=== PATIENT | female | born 1990 | race African-American/Black ===

== ENCOUNTER 2016-09-20 00:37 | Emergency (ER) | payer SELFPAY ==
[~2016-09-20] VITALS: Ht 165.1 cm; Wt 51.7 kg
[2016-09-20] MEDS ORDERED: ADDERALL (01:10)
[2016-09-20] MEDS ORDERED: NS IV 500 ML 500 ML IV ONE (01:15)
--- NOTE | 2016-09-20 01:15 | ED GU-Female ---
General Chief Complaint: -Female Stated Complaint: CRAMPING Nursing Triage Note: PT TO ED 8 W/ C/O VAGINAL BLEEDING ET LOWER ABD CRAMPING ONSET "RECENTLY". REPORTS SHE TOOK A [employer] TEST ET IT WAS POSITIVE BUT TO MAKE SURE SHE WENT TO [employer] ET TOOK A "$30" ONE AND IT WAS ALSO POSITIVE. PT STATES SHE HAS NOT SEEN A DR YET BECAUSE SHE STATES SHE "WASN'T SURE SHE WAS GOING TO KEEP IT OR WHAT." PT REPORTS SHE IS GOING THROUGH ONE [place] AN HOUR AT THIS TIME. Nursing Sepsis Screen: No Definite Risk Source: patient Exam Limitations: no limitations History of Present Illness Time seen by provider: 01:09 Initial Comments Patient has ER by private conveyance with chief complaint of progressively worsening bleeding over the last several weeks to the point that she's not using multiple pads per day. She says she had 2 positive urine test in mid-June. LMP was early May. She is a at approximately 19 weeks. She says her third had near uterine rupture and her fourth and negative the same thing so they had to take the child very early history of premature and had spent a lot of time in the NICU. She has had some nausea and breast tenderness with this thus far she has not sought any help from medical staff because she wasn't sure what she wanted to do with this . She has had no care continues to drink alcohol 2-4 drinks per session over the weekend and does not take vitamins. She denies any shortness of breath, chest pain, nausea, abdominal pain, cramping, dysuria. Her psychiatrist in [place] where she is from is writting for her to continue taking Adderall. Allergies and Home Medications Allergies Coded Allergies: No Known Drug Allergies (Unverified , 09/20/16) Home Medications [Adderall] , (Reported) Constitutional: No chills, No diaphoresis, No fever, No malaise Respiratory: No cough, No short of breath Cardiovascular: No chest pain, No palpitations Gastrointestinal: No abdominal pain, No constipation, No diarrhea, No nausea, No vomiting Genitourinary: denies burning, denies discharge, denies dysuria, other ( constant bleeding) : Yes Expected Date of Delivery: Feb 13, 2017 LMP: May 09, 2016 Musculoskeletal: No back pain, No joint pain Skin: No pruritus, No rash Psychiatric/Neurological: Denies Anxiety, Denies Depressed Past Hptqpbv-Hoaryr-Hddsec Hx Patient Social History Alcohol Use: Occasionally Uses Recreational Drug Use: No Smoking Status: Never a Smoker Recent Foreign Travel: No Contact w/Someone Who Travel: No Recent Infectious Disease Expo: No Recent Hopitalizations: No Surgeries Surgeries: Section Physical Exam Vital Signs Vital Sign - Last 12Hours 09/20/16 00:49 Temp 97.8 Pulse 98 Resp 20 B/P (MAP) 111/78 O2 Delivery Room Air Capillary Refill : Less Than 3 Seconds General Appearance: WD/WN, no apparent distress HEENT: PERRL/EOMI, pharynx normal Neck: supple, normal inspection Cardiovascular: normal peripheral pulses, regular rate, rhythm Respiratory: lungs clear, normal breath sounds Gastrointestinal: normal bowel sounds, non tender, soft, no organomegaly, other (812 weeks gravid appearance with a palpable softball size uterus) Genital/Rectal: normal genital exam, normal vaginal exam (multiparous cervical os with normal complement of mucinous bloody discharge but no products of conception her membranes noted. Os is closed.), No tenderness Pelvic: normal external exam, no cerv. motion tender, no masses Extremities: no pedal edema, normal capillary refill Neurologic/Psychiatric: alert, oriented x 3 Skin: normal color, warm/dry Lymphatic: no adenopathy Progress/Results/Core Measures Results/Orders Lab Results Laboratory Tests Test 09/20/16 01:00 09/20/16 01:14 Range/Units Urine Color SARIKA H Urine Clarity SLIGHTLY CLOUDY Urine pH 6.5 5-9 Urine Specific [place] 1.020 1.016-1.022 Urine Protein 2+ H NEGATIVE Urine Glucose (UA) NEGATIVE NEGATIVE Urine Ketones NEGATIVE NEGATIVE Urine Nitrite NEGATIVE NEGATIVE Urine Bilirubin NEGATIVE NEGATIVE Urine Urobilinogen NORMAL NORMAL MG/DL Urine Leukocyte Esterase 1+ H NEGATIVE Urine RBC (Auto) 5+ H NEGATIVE Urine RBC >100 H /HPF Urine WBC 0-2 /HPF Urine Squamous Epithelial Cells 2-5 /HPF Urine Crystals NONE /LPF Urine Bacteria TRACE /HPF Urine Casts NONE /LPF Urine Mucus NEGATIVE /LPF Urine Culture Indicated NO Urine Opiates Screen NEGATIVE NEGATIVE Urine Oxycodone Screen NEGATIVE NEGATIVE Urine Methadone Screen NEGATIVE NEGATIVE Urine Propoxyphene Screen NEGATIVE NEGATIVE Urine Barbiturates Screen NEGATIVE NEGATIVE Ur Tricyclic Antidepressants Screen NEGATIVE NEGATIVE Urine Phencyclidine Screen NEGATIVE NEGATIVE Urine Amphetamines Screen NEGATIVE NEGATIVE Urine Methamphetamines Screen NEGATIVE NEGATIVE Urine Benzodiazepines Screen NEGATIVE NEGATIVE Urine Cocaine Screen NEGATIVE NEGATIVE Urine Cannabinoids Screen POSITIVE H NEGATIVE White Blood Count 6.0 4.3-11.0 10^3/uL Red Blood Count 4.37 4.35-5.85 10^6/uL Hemoglobin 13.1 11.5-16.0 G/DL Hematocrit 38 35-52 % Mean Corpuscular Volume 87 80-99 FL Mean Corpuscular Hemoglobin 30 25-34 PG Mean Corpuscular Hemoglobin Concent 35 32-36 G/DL Red Cell Distribution Width 12.2 10.0-14.5 % Platelet Count 290 130-400 10^3/uL Mean Platelet Volume 9.8 7.4-10.4 FL Neutrophils (%) (Auto) 45 42-75 % Lymphocytes (%) (Auto) 47 H 12-44 % Monocytes (%) (Auto) 7 0-12 % Eosinophils (%) (Auto) 2 0-10 % Basophils (%) (Auto) 0 0-10 % Neutrophils # (Auto) 2.7 1.8-7.8 X 10^3 Lymphocytes # (Auto) 2.8 1.0-4.0 X 10^3 Monocytes # (Auto) 0.4 0.0-1.0 X 10^3 Eosinophils # (Auto) 0.1 0.0-0.3 10^3/uL Basophils # (Auto) 0.0 0.0-0.1 10^3/uL Sodium Level 137 135-145 MMOL/L Potassium Level 3.8 3.6-5.0 MMOL/L Chloride Level 105 98-107 MMOL/L Carbon Dioxide Level 22 21-32 MMOL/L Anion Gap 10 5-14 MMOL/L Blood Urea Nitrogen 10 7-18 MG/DL Creatinine 0.60 0.60-1.30 MG/DL Estimat Glomerular Filtration Rate > 60 BUN/Creatinine Ratio 17 Glucose Level 122 H 70-105 MG/DL Calcium Level 9.0 8.5-10.1 MG/DL Total Bilirubin 0.2 0.1-1.0 MG/DL Aspartate Amino Transf (AST/SGOT) 19 5-34 U/L Alanine Aminotransferase (ALT/SGPT) 13 0-55 U/L Alkaline Phosphatase 77 40-136 U/L Total Protein 7.3 6.4-8.2 GM/DL Albumin 4.0 3.2-4.5 GM/DL Human Chorionic Gonadotropin, Quant < 5 <5 MIU/ML My Orders Orders - GENESIS COLBY Cbc With Automated Diff (09/20/16:15) Comprehensive Metabolic Panel (09/20/16:15) Drug Screen Stat (Urine) (09/20/16:15) Hcg,Quantitative (09/20/16:) Ua Culture If Indicated (09/20/16:) Ns Iv 500 Ml (Sodium Chloride 0.9%) (09/20/16:15) Urine Bedside (09/20/16:15) Us Ob<14 Wks Sngle W/Transvag (09/20/16:15) Vital Signs/I&O Vital Sign - Last 12Hours 09/20/16 00:49 Temp 97.8 Pulse 98 Resp 20 B/P (MAP) 111/78 O2 Delivery Room Air Blood Pressure Mean: 89 Progress Note #1: Time: 01:22 Progress Note Bedside test was negative so we'll go ahead and get the ultrasound followed by a pelvic exam looking for retained POC. Progress Note #2: Time: 03:25 Progress Note No POC seen at the cervical os. The patient is having no beta hCG at this time so it's reasonable to have her just follow up outpatient with her APPLICATION DESIGN ENGINEER. The patient informs me that she is planning to go back to [place] where her primary care physician is located [facility] on Wednesday. I asked her to stop by medical records Wednesday and get a copy of all of her lab, imaging, to go with her. Diagnostic Imaging Diagonstic Imaging: Ultrasound Plain Films/CT/US/NM/MRI: pelvis (greater than 14 weeks) Comments Endometrium measures 7 mm. No gestational sac is identified. In the setting of a positive test, differential includes early IUP, spontaneous , ectopic . Correlate with beta hCG and recommend close follow-up with beta hCG, ultrasound and exam. Right ovary contains a complex cyst with fluid and echogenic components, measuring 5.4 x 3.7 x 4.47 m. Recommend close continued follow-up. Left ovary not seen. Reviewed: Reviewed Night Moe Study, Reviewed by Me Consults Consults : Consulting Physician: KHANNA,LUIS K DO Consults Notes Discussed the case presentation, lab, ultrasound, physical exam findings. Dr. Khanna agrees that the patient would probably be best served to follow up with her primary care physician or APPLICATION DESIGN ENGINEER for further management. Departure Impression Impression: Primary Impression: Vaginal bleeding Disposition: HOME, SELF-CARE Condition: Stable Departure-Patient Inst. Decision time for Depature: 03:26 Referrals: NO,LOCAL PHYSICIAN (PCP) Primary Care Physician Patient Instructions: IRREGULAR VAGINAL BLEEDING Add. Discharge Instructions: Get a copy of her medical records Wednesday morning from the hospital. After he returned home Wednesday he should contact your private physician or APPLICATION DESIGN ENGINEER to be seen for your disorganized uterine bleeding. If he becomes short of breath or start having chest pain or abdominal pain or nausea vomiting or fever then you should return to an ER immediately. Otherwise plan on following up next week or 2 with your APPLICATION DESIGN ENGINEER/primary care physician. All discharge instructions reviewed with patient and/or family. Voiced understanding. GENESIS COLBY Sep 20, 2016 01:15
[2016-09-20 01:24] LABS: BASOPHILS % (AUTO) 0 % (0-10); EOSINOPHILS # (AUTO) 0.1 10^3/uL (0.0-0.3); EOSINOPHILS % (AUTO) 2 % (0-10); LYMPHOCYTES # (AUTO) 2.8 X 10^3 (1.0-4.0); LYMPHOCYTES % (AUTO) 47 % (12-44); MEAN CORPUSCULAR HEMOGLOBIN 30 PG (25-34); MEAN CORPUSCULAR HGB CONC 35 G/DL (32-36); MEAN CORPUSCULAR VOLUME 87 FL (80-99); MEAN PLATELET VOLUME 9.8 FL (7.4-10.4); MONOCYTES # (AUTO) 0.4 X 10^3 (0.0-1.0); MONOCYTES % (AUTO) 7 % (0-12); NEUTROPHILS # (AUTO) 2.7 X 10^3 (1.8-7.8); NEUTROPHILS % (AUTO) 45 % (42-75); PLATELET COUNT 290 10^3/uL (130-400); RED BLOOD COUNT 4.37 10^6/uL (4.35-5.85); RED CELL DISTRIBUTION WIDTH 12.2 % (10.0-14.5)
[2016-09-20 01:25] LABS: BILIRUBIN,URINE NEGATIVE (NEGATIVE); KETONES,URINE NEGATIVE (NEGATIVE); LEUKOCYTE ESTERASE ,URINE 1+ (NEGATIVE); NITRITE,URINE NEGATIVE (NEGATIVE); PH,URINE 6.5 (5-9); PROTEIN,URINE 2+ (NEGATIVE); UROBILINOGEN,URINE NORMAL (NORMAL)
[2016-09-20 01:44] LABS: WBC,URINE 0-2 /HPF
[2016-09-20 01:44] LABS: ALANINE AMINOTRANSFERASE 13 U/L (0-55); ANION GAP 10 MMOL/L (5-14); ASPARTATE AMINO TRANSFERASE 19 U/L (5-34); BILIRUBIN,TOTAL 0.2 MG/DL (0.1-1.0); BLOOD UREA NITROGEN 10 MG/DL (7-18); BUN/CREATININE RATIO 17; CARBON DIOXIDE 22 MMOL/L (21-32); CHLORIDE 105 MMOL/L (98-107); GFR ESTIMATED > 60; GLUCOSE 122 MG/DL (70-105); POTASSIUM 3.8 MMOL/L (3.6-5.0); SODIUM 137 MMOL/L (135-145); TOTAL PROTEIN 7.3 GM/DL (6.4-8.2)
[2016-09-20 03:30] VITALS: BP 122/96
--- NOTE | 2016-09-20 07:28 | Diagnostic Imaging Report ---
EXAMINATION: OB ultrasound INDICATION: Cramping There are no prior studies available for comparison. The uterus is nongravid and not enlarged and retroverted. The endometrium is only slightly thickened measuring 7 MM (normal 5 mm or less). If the patient has a positive test the possibility of an early live , spontaneous or ectopic should certainly be considered. Correlation with the patient's beta hCG levels would be recommended. The right ovary was identified. The right ovary does contain a sizeable hypoechoic mass with internal echoes measuring 5.4 x 3.7 x 4.4 CM. I suspect that this is an ovarian cyst which has been complicated by infection and/or hemorrhage. This does not have the typical appearance of an ectopic . The left ovary was not clearly visualized. There is no solid pelvic mass or free fluid collection noted. IMPRESSION: 1. There is no evidence for gestational sac within the uterus. Recommendations as above. 2. There is a sizable complex hypoechoic mass associated with the right ovary. Most likely, this is a complicated cyst. A short-term (4-6 week) followup pelvic also exam would be recommended for further study. Dictated by: Dictated on workstation # [id number]
== END 2016-09-20 03:30 | disposition home or self-care (01) ==
LOC: ER 00:40
DX: O20.9 Hemorrhage in early pregnancy, unspecified (principal); Z3A.19 19 weeks gestation of pregnancy; Z87.59 Personal history of other complications of pregnancy, childbirth and the puerperium
CPT/HCPCS: 36415; 76801; 76817; 80053; 80306; 81000; 84702; 84703; 85025; 99282

== ENCOUNTER 2017-01-19 23:26 | Emergency (ER) | payer SELFPAY ==
[~2017-01-19] VITALS: Ht 165.1 cm; Wt 45.4 kg
[~2017-01-19 23:26] MED LIST: ADDERALL
[2017-01-19] MEDS ORDERED: LACTATED RINGERS 1,000 ML IV ONE (23:35)
[2017-01-19 23:45] LABS: BASOPHILS % (AUTO) 0 % (0-10); EOSINOPHILS # (AUTO) 0.1 10^3/uL (0.0-0.3); EOSINOPHILS % (AUTO) 1 % (0-10); LYMPHOCYTES # (AUTO) 2.9 X 10^3 (1.0-4.0); LYMPHOCYTES % (AUTO) 45 % (12-44); MEAN CORPUSCULAR HEMOGLOBIN 30 PG (25-34); MEAN CORPUSCULAR HGB CONC 35 G/DL (32-36); MEAN CORPUSCULAR VOLUME 85 FL (80-99); MEAN PLATELET VOLUME 9.4 FL (7.4-10.4); MONOCYTES # (AUTO) 0.4 X 10^3 (0.0-1.0); MONOCYTES % (AUTO) 7 % (0-12); NEUTROPHILS % (AUTO) 47 % (42-75); PLATELET COUNT 347 10^3/uL (130-400); RED BLOOD COUNT 4.82 10^6/uL (4.35-5.85); RED CELL DISTRIBUTION WIDTH 12.1 % (10.0-14.5); WHITE BLOOD COUNT 6.5 10^3/uL (4.3-11.0)
[2017-01-19] MEDS ORDERED: ONDANSETRON 4 MG/2 ML (SDV) Z0FRAN IVP ONE (23:45)
[2017-01-19 23:56] LABS: BILIRUBIN,URINE NEGATIVE (NEGATIVE); KETONES,URINE 2+ (NEGATIVE); LEUKOCYTE ESTERASE ,URINE NEGATIVE (NEGATIVE); NITRITE,URINE NEGATIVE (NEGATIVE); PH,URINE 6.5 (5-9); PROTEIN,URINE NEGATIVE (NEGATIVE); UROBILINOGEN,URINE NORMAL (NORMAL)
[2017-01-20 00:02] LABS: SQUAMOUS EPITHELIAL CELL,UR RARE /HPF
[2017-01-20 00:14] LABS: ALANINE AMINOTRANSFERASE 14 U/L (0-55); ALBUMIN 4.6 GM/DL (3.2-4.5); ALCOHOL 13 MG/DL (<10); ANION GAP 13 MMOL/L (5-14); ASPARTATE AMINO TRANSFERASE 23 U/L (5-34); BILIRUBIN,TOTAL 0.3 MG/DL (0.1-1.0); BLOOD UREA NITROGEN 9 MG/DL (7-18); BUN/CREATININE RATIO 13; CALCIUM 9.8 MG/DL (8.5-10.1); CARBON DIOXIDE 22 MMOL/L (21-32); CHLORIDE 101 MMOL/L (98-107); CREATININE SERUM 0.67 MG/DL (0.60-1.30); GFR ESTIMATED > 60; GLUCOSE 89 MG/DL (70-105); POTASSIUM 3.5 MMOL/L (3.6-5.0); SALICYLATE < 5.0 MG/DL (5.0-20.0); SODIUM 136 MMOL/L (135-145); TOTAL PROTEIN 8.6 GM/DL (6.4-8.2)
[2017-01-20 00:16] LABS: ACETAMINOPHEN < 10 UG/ML (10-30)
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
[2017-01-20 01:02] VITALS: BP 125/81
== END 2017-01-20 01:01 | disposition home or self-care (01) ==
LOC: EDUNIT# 23:31 → ER 23:32
DX: R41.82 Altered mental status, unspecified (principal); Z87.59 Personal history of other complications of pregnancy, childbirth and the puerperium
CPT/HCPCS: 36415; 80053; 80306; 80320; 80329; 81000; 84443; 84703; 85025; 93005

== ENCOUNTER 2017-02-08 23:09 | Emergency (ER) | payer SELFPAY | END 2017-02-08 23:10 | disposition left against medical advice (07) | LOC: EDUNIT# 23:09 → ER 23:10 | DX: R11.10 Vomiting, unspecified (principal) ==

== ENCOUNTER 2017-03-21 05:22 | Emergency (ER) | payer OTHER ==
[~2017-03-21] VITALS: Ht 165.1 cm; Wt 50.8 kg
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
[2017-03-21] MEDS ORDERED: CYCL10TA9 PO (07:07)
[2017-03-21 07:15] VITALS: BP 110/79
--- NOTE | 2017-03-21 07:23 | Diagnostic Imaging Report ---
EXAM: WRIST, LEFT, 3 VIEWS OR MORE INDICATION: Trauma. Left wrist and arm pain. COMPARISON: None. FINDINGS: No fracture or malalignment. Soft tissue shadows are unremarkable. IMPRESSION: Negative left wrist radiographs. Dictated by: Dictated on workstation # [id number]
--- NOTE | 2017-03-21 07:26 | Diagnostic Imaging Report ---
EXAM: FOREARM, LEFT, 2 VIEWS INDICATION: Trauma. Left wrist and arm pain. COMPARISON: None. FINDINGS: No fracture or malalignment. Soft tissue shadows are unremarkable. No radiopaque foreign bodies. IMPRESSION: Negative left forearm radiographs. Dictated by: Dictated on workstation # [id number]
--- NOTE | 2017-03-21 07:29 | Diagnostic Imaging Report ---
INDICATION: Pain 3 views were obtained FINDINGS: The alignment is normal. There is no fracture or dislocation. Soft tissues are unremarkable. IMPRESSION: No acute fracture or dislocation. Dictated by: Dictated on workstation # [id number]
== END 2017-03-21 07:17 | disposition home or self-care (01) ==
LOC: EDUNIT# 05:22 → ER 05:25
DX: S13.4XXA Sprain of ligaments of cervical spine, initial encounter (principal); S63.502A Unspecified sprain of left wrist, initial encounter; S00.93XA Contusion of unspecified part of head, initial encounter; S60.221A Contusion of right hand, initial encounter; S60.021A Contusion of right index finger without damage to nail, initial encounter; F41.9 Anxiety disorder, unspecified; Z87.59 Personal history of other complications of pregnancy, childbirth and the puerperium; Y04.8XXA Assault by other bodily force, initial encounter
CPT/HCPCS: 70450; 72125; 73090; 73110; 73130; 99283